=== PATIENT | male | born 1990 | race Caucasian/White ===

== ENCOUNTER 2024-04-27 16:52 | Emergency (ER) | payer MEDICAID ==
[~2024-04-27] VITALS: Ht 170.2 cm; Wt 72.6 kg
[2024-04-27 17:02] VITALS: BP 126/80; PULSE 82; RESP 18; O2SAT 97
== END 2024-04-28 04:27 | disposition left against medical advice (07) ==
LOC: ER 16:52
DX: T63.441A Toxic effect of venom of bees, accidental (unintentional), initial encounter (principal); Z53.21 Procedure and treatment not carried out due to patient leaving prior to being seen by health care provider; Y92.89 Other specified places as the place of occurrence of the external cause

== ENCOUNTER 2024-05-16 07:41 | Emergency (ER) | payer MEDICAID ==
[~2024-05-16] VITALS: Ht 180.3 cm; Wt 72.7 kg
[2024-05-16 08:42] VITALS: BP 147/96; PULSE 108; RESP 18; TEMP 98.4; O2SAT 99
[2024-05-16 09:34] LABS: Amphetamine Screen, Urine Neg (NEGATIVE); Barbiturate Scree,Urine Neg (NEGATIVE); Benzodiazephine Screen, Urine Neg (NEGATIVE)
[2024-05-16 09:35] LABS: Cannabinoid Screen, Urine Pos (NEGATIVE); Cocaine Screen, Urine Neg (NEGATIVE); Opiate Scree,Urine Neg (NEGATIVE); Phencyclidine Screen, Urine Neg (NEGATIVE)
== END 2024-05-16 10:15 | disposition home or self-care (01) ==
LOC: EDBD 07:41 → ER 07:41
DX: F41.1 Generalized anxiety disorder (principal); F12.10 Cannabis abuse, uncomplicated; F32.9 Major depressive disorder, single episode, unspecified; F17.210 Nicotine dependence, cigarettes, uncomplicated; Z88.8 Allergy status to other drugs, medicaments and biological substances; Z91.030 Bee allergy status; Z91.09 Other allergy status, other than to drugs and biological substances; Z79.899 Other long term (current) drug therapy
CPT/HCPCS: 80307